=== PATIENT | female | born 1995 | race African-American/Black ===

== ENCOUNTER 2024-10-14 12:30 | Emergency (ER) | payer OTHER ==
[~2024-10-14] VITALS: Ht 160 cm; Wt 71.4 kg
[2024-10-14 13:29] LABS: BASO # 0.1 10^3/uL (0.0-0.2); BASO % 0.5 % (0.0-1.0); EOS # 0.2 10^3/uL (0.0-0.5); EOS % 1.8 % (0.0-3.0); LYMPH # 3.8 10^3/uL (1.5-5.0); LYMPH % 38.7 % (24.0-44.0); MONO # 0.6 10^3/uL (0.0-0.8); MONO % 5.7 % (2.0-8.0); NEUTROPHILS # 5.2 10^3/uL (1.5-8.5); NEUTROPHILS % 53.0 % (36.0-66.0); PLATELET COUNT, AUTOMATED 294 10^3/uL (150-450)
[2024-10-14 13:52] LABS: CK-MB VALUE MASS < 1.0 NG/ML (<3.6)
[2024-10-14 13:54] LABS: CALCIUM LEVEL 9.5 MG/DL (8.5-10.1); CARBON DIOXIDE LEVEL 27 MMOL/L (20-31); CHLORIDE LEVEL 103 MMOL/L (98-107); CREATININE FOR GFR 0.92 MG/DL (0.55-1.30); GLOMERULAR FILTRATION RATE 87.5 (>60); POTASSIUM SERUM 3.9 MMOL/L (3.5-5.1); SODIUM LEVEL 141 MMOL/L (136-145)
[2024-10-14 13:56] LABS: FREE T4 1.14 NG/DL (0.89-1.76)
[2024-10-14 13:58] LABS: CPK CREATINE PHOSPHOKINASE 104 U/L (34-145); HCG, SERUM QUALITATIVE NEGATIVE (NEGATIVE)
[2024-10-14 14:56] LABS: CK-MB VALUE MASS < 1.0 NG/ML (<3.6); CPK CREATINE PHOSPHOKINASE 81 U/L (34-145)
[2024-10-14] MEDS: KETOROLAC 30 MG/ML 1 ML VIAL IV ONE (14:59)
[2024-10-14 16:34] VITALS: BP 114/56; TEMP 99.2; O2SAT 100
== END 2024-10-14 16:39 | disposition home or self-care (01) ==
LOC: M ED 12:30
DX: R07.89 Other chest pain (principal); I25.2 Old myocardial infarction
CPT/HCPCS: 71045; 80048; 82550; 82553; 84439; 84443; 84484; 84703; 85025; 87486; 87581; 87633; 87798; 93005; 93041; 94760; 96374; 99284; J1885